=== PATIENT | female | born 1980 | race Two or more races ===

== ENCOUNTER 2024-07-16 23:27 | Emergency (ER) | payer OTHER ==
[~2024-07-16] VITALS: Ht 165.1 cm; Wt 129.1 kg
[2024-07-17] MEDS ORDERED: iohexol 300mg/ml 100ml inj. ONE (03:09)
[2024-07-17] MEDS: cyclobenzaprine 10mg tablet PO ONE (03:15)
[2024-07-17 06:17] VITALS: BP 131/59; PULSE 85; RESP 16; O2SAT 96
== END 2024-07-17 06:33 | disposition home or self-care (01) ==
LOC: ER 23:28
DX: S70.01XA Contusion of right hip, initial encounter (principal); S80.01XA Contusion of right knee, initial encounter; S20.211A Contusion of right front wall of thorax, initial encounter; S09.90XA Unspecified injury of head, initial encounter; G89.11 Acute pain due to trauma; W01.0XXA Fall on same level from slipping, tripping and stumbling without subsequent striking against object, initial encounter; Y93.89 Activity, other specified; Y92.481 Parking lot as the place of occurrence of the external cause; Y99.8 Other external cause status
CPT/HCPCS: 70450; 72125; 74177; 99285; Q9967